=== PATIENT | male | born 1960 | race Caucasian/White ===

== ENCOUNTER 2019-08-09 10:26 | Emergency (ER) | payer BC, OTHER ==
[~2019-08-09] VITALS: Ht 190.5 cm; Wt 106.6 kg
[~2019-08-09 10:26] MED LIST: ASPI-1169 PO; ATOR40TA PO; CLOP75TA15 PO; ENOX100D SQ; METO25TA20 PO; Nitroglycerin SL; RXENO XX
[2019-08-09 10:47] VITALS: BP 137/81
[2019-08-09] MEDS ORDERED: TDAP [DIPH/PERTUSSIS/TET] 0.5 ML VIAL IM ONE ×2 (11:30→11:34)
== END 2019-08-09 12:21 | disposition home or self-care (01) ==
LOC: ER 10:28
DX: S61.011A Laceration without foreign body of right thumb without damage to nail, initial encounter (principal); E78.00 Pure hypercholesterolemia, unspecified; Z98.890 Other specified postprocedural states; Z79.899 Other long term (current) drug therapy; Z79.82 Long term (current) use of aspirin; W26.0XXA Contact with knife, initial encounter; Y93.E8 Activity, other personal hygiene; Y92.090 Kitchen in other non-institutional residence as the place of occurrence of the external cause; Y99.8 Other external cause status
CPT/HCPCS: 12002; 90471; 90715; 99283; A6403